=== PATIENT | female | born 1975 | race Caucasian/White ===

== ENCOUNTER 2021-12-27 14:38 | Outpatient (CLI) | payer BC, SELFPAY ==
[2021-12-27 12:52] LABS: Albumin* 4.4 g/dL (3.3-5.0); Chloride* 106 mmol/L (96-114); Potassium* 4.7 mmol/L (3.6-5.1); Sodium* 142 mmol/L (135-149)
[2021-12-27 12:54] LABS: Cholesterol* 177 mg/dL (90-199); Creatinine* 0.6 mg/dL (0.5-1.5); Estimated Glomerular Filt Rate 111 ml/min
[2021-12-27 12:55] LABS: Alanine Aminotransferase* 19 U/L (4-35); Alkaline Phosphatase* 52 U/L (40-150); Aspartate Amino Transferase* 22 U/L (12-35); Bilirubin Total* 0.3 mg/dL (0.1-1.5); Blood Urea Nitrogen* 9 mg/dL (5-24); Calcium* 8.6 mg/dL (8.4-10.6); Carbon Dioxide* 26 mmol/L (20-32); Glucose* 92 mg/dL (60-115); Total Protein* 7.1 g/dL (6.0-8.3); Triglycerides* 76 mg/dL (40-149)
[2021-12-27 12:56] LABS: HDL Cholesterol* 72 mg/dL (>=50); LDL Cholesterol Calculated 90 mg/dL (<100)
[2021-12-27 13:13] LABS: Vitamin D 25 Hydroxy* 60 ng/mL (30-80)
== END 2021-12-27 14:39 | disposition home or self-care (01) ==
PROVIDERS: PCP Family Medicine; Visit Provider Family Medicine
DX: Z01.419 Encounter for gynecological examination (general) (routine) without abnormal findings (principal); E55.9 Vitamin D deficiency, unspecified; D64.9 Anemia, unspecified; R63.6 Underweight
CPT/HCPCS: 80053; 80061; 82306

== ENCOUNTER 2022-02-03 07:05 | Outpatient (CLI) | payer BC, SELFPAY | END 2022-02-03 07:06 | disposition home or self-care (01) | LOC: OP CLINIC 07:06 | PROVIDERS: PCP Family Medicine; Visit Provider Internal Medicine | DX: Z12.11 Encounter for screening for malignant neoplasm of colon (principal) | CPT/HCPCS: 45378; J2250; J2405; J3010 ==

== ENCOUNTER 2022-09-07 12:46 | Outpatient (CLI) | payer BC, SELFPAY ==
--- NOTE | 2022-09-07 13:00 | CRLHL7_ITS ---
For Patients: As a result of the Cures Act, medical imaging exams and procedure reports are released immediately into your electronic medical record. You may view this report before your referring provider. If you have questions, please contact your health care provider. BILATERAL SCREENING MAMMOGRAM WITH COMPUTER-AIDED DETECTION AND TOMOSYNTHESIS TECHNIQUE: CC and MLO views were obtained. These mammographic images have been obtained using full-field digital technique. These mammographic images were interpreted with the benefit of computer-aided detection. Breast Tomosynthesis was used in this interpretation. COMPARISON FILM: 04/14/21, 01/02/20, 06/14/18. FINDINGS: The breasts are extremely dense, which lowers the sensitivity of mammography IMPRESSION: There is no radiographic evidence for malignancy. ASSESSMENT: BI-RADS Category 1: Negative RECOMMENDATION: Routine screening mammogram in 1 year. A lay language report of this examination will be provided to the patient. Luis Eduardo Arreguin M.D. Diagnostic/Nuclear Medicine Radiologist [email or web address] FARIDA/Dictated by: Luis Eduardo Arreguin MD @ 09/08/2022 9:04:00 AM FARIDA/Dictated by: Luis Eduardo Arreguin MD @ 09/08/2022 9:04:00 AM (Electronically Signed)
== END 2022-09-07 12:47 | disposition home or self-care (01) ==
LOC: MAMMO 12:47
PROVIDERS: PCP Family Medicine; Visit Provider Family Medicine
DX: Z12.31 Encounter for screening mammogram for malignant neoplasm of breast (principal); R92.2 Inconclusive mammogram
CPT/HCPCS: 77063; 77067

== ENCOUNTER 2023-01-09 08:39 | Outpatient (CLI) | payer BC, SELFPAY | END 2023-01-09 08:40 | disposition home or self-care (01) | LOC: NFLDREF 01-11 15:02 | PROVIDERS: PCP Family Medicine; Referring Provider Family Medicine; Visit Provider Family Medicine | DX: E55.9 Vitamin D deficiency, unspecified (principal); Z13.220 Encounter for screening for lipoid disorders; D72.819 Decreased white blood cell count, unspecified | CPT/HCPCS: 80053; 80061; 82306 ==

== ENCOUNTER 2023-02-01 09:38 | Outpatient (CLI) | payer BC, SELFPAY ==
[2023-02-01 14:02] LABS: TSH With Reflex to FT4* 0.586 uIU/mL (0.270-4.200)
[2023-02-05 00:27] LABS: Testosterone, Low Level 21 ng/dL (9-55)
== END 2023-02-01 09:39 | disposition home or self-care (01) ==
PROVIDERS: PCP Family Medicine; Visit Provider Obstetrics & Gynecology
DX: N95.1 Menopausal and female climacteric states (principal)
CPT/HCPCS: 84403; 84443

== ENCOUNTER 2023-06-19 08:00 | Outpatient (CLI) | payer BC, SELFPAY ==
--- OUTSIDE RECORDS SUMMARY | 2023-06-25 08:00 | XMS_ITS | Clinical Summary ---
Author Name Unknown Organization [facility] Address [address], [place] [address] Care Team Providers Care Warp Splitter Name Role Phone Yolanda Carpenter MD Primary Care Provider Source Comments You are receiving this document as you are listed as the primary care provider,follow-up provider, or the patient has been referred to you for consultation.This is in compliance with the Medicare and[facility] EHR Incentive Program,which states Providers who transition their patient to another setting of careor provider of care or refers their patient to another provider of care shouldprovide summary care record for each transition of care or referral. [facility] Allergies No known active allergies Medications Medication Sig Dispensed Refills Start Date End Date Status ibuprofen (MOTRIN) 200 MG tablet Take 200-400 mg by mouth as needed for Pain. Active traMADol (ULTRAM) 50 MG tablet Take 50-100 mg by mouth two times daily as needed for Pain. Active FERROUS FUMARATE-VITAMIN C OR Take 1 Tab by mouth two times a day. Active cholecalciferol (VITAMIND3) 400 UNITS tablet Take 400 Units by mouth daily. Active gabapentin (NEURONTIN) 100 MG capsule Take 3-6 Caps by mouth daily at bedtime. 0 12/27/2015 Active DULoxetine (CYMBALTA) 20 MG capsuleIndications:Fib romyalgia Take 1 Cap by mouth daily. 30 Cap 2 12/27/2015 Active Active Problems Problem Noted Date Diagnosed Date Fibromyalgia 12/27/2015 Restless legs 12/27/2015 Iron deficiency anemia due to chronic blood loss 12/27/2015 Immunizations Name Administration Dates Next Due Influenza IIV4 (Quadrivalent) 0.5mL (82555) 08/2015 Social History Tobacco Use Types Packs/Day Years Used Date Smoking Tobacco: Never Smokeless Tobacco: Never Sex and Gender Information Value Date Recorded Sex Assigned at Not on file Gender Identity Not on file Sexual Orientation Not on file Last Filed Vital Signs Vital Sign Reading Time Taken Comments Blood Pressure 143/95 12/27/2015 1:29 PM VETERINARY MEDICAL OFFICER Pulse 80 12/27/2015 1:29 PM VETERINARY MEDICAL OFFICER Temperature - - Respiratory Rate - - Oxygen Saturation - - Inhaled Oxygen Concentration - - Weight 55.6 kg (122 lb 8 oz) 12/27/2015 1:29 PM VETERINARY MEDICAL OFFICER Height - - Body Mass Index - - Plan of Treatment Health Maintenance Due Date Last Done Comments Cervical Cancer Screening Due 1974 Colon Cancer Screening Plan Due 1974 Hep C Screening (Preventive Services) 1974 HIV Screening (Preventive Services) 1990 Adult Preventive Visit 1992 DTaP/Tdap/Td (1 - Tdap) 1993 HepB (1) 1993 Cholesterol 09/25/2019 COVID-19 Vaccine (1 - 2022-2 4 season) 2022 Influenza (Season Ended) 2023 12/27/2015 Zoster/Shingles (1 of 2) 2024 HepA Aged Out No longer eligi ble based on patient's age to complete this topic Hib Aged Out No longer eligi ble based on patient's age to complete this topic IPV (Polio) Aged Out No longer eligi ble based on patient's age to complete this topic MCV4 Aged Out No longer eligi ble based on patient's age to complete this topic Pneumococcal Aged Out No longer eligi ble based on patient's age to complete this topic Care Teams Warp Splitter Relationship Specialty Start Date End Date Yolanda Carpenter MD [address] [facility] [place] [address] PCP - General Family Practice 11/09/15
== END 2023-06-19 08:01 | disposition home or self-care (01) ==
LOC: NFLDREF 06-25 07:59
PROVIDERS: PCP Family Medicine; Referring Provider Family Medicine; Visit Provider Family Medicine
DX: E61.1 Iron deficiency (principal)
CPT/HCPCS: 82728

== ENCOUNTER 2023-09-11 10:03 | Outpatient (CLI) | payer BC, SELFPAY ==
--- OUTSIDE RECORDS SUMMARY | 2023-09-11 10:07 | XMS_ITS | Clinical Summary ---
Author Organization [facility] Address [address] [place] [id number] Care Team Providers Care Trimming Assembler Name Role Phone Yolanda Carpenter MD Primary Care Provider Source Comments You are receiving this document as you are listed as the primary care provider,follow-up provider, or the patient has been referred to you for consultation.This is in compliance with the Medicare andMedicaid EHR Incentive Program,which states Providers who transition [...] Dates Next Due Influenza IIV4 (Quadrivalent) 0.5mL (98850) 08/2015 Social History Tobacco Use Types Packs/Day Years Used Date Smoking Tobacco: Never Smokeless Tobacco: Never Sex and Gender Information Value Date Recorded Sex Assigned at Not on file Gender Identity Not on file Sexual Orientation Not on file Last Filed Vital Signs Vital Sign Reading Time Taken Comments Blood Pressure 143/95 12/27/2015 1:29 PM SOUND CUTTER Pulse 80 12/27/2015 1:29 PM SOUND CUTTER Temperature - - Respiratory Rate - - Oxygen Saturation - - Inhaled Oxygen Concentration - - Weight 55.6 kg (122 lb 8 oz) 12/27/2015 1:29 PM SOUND CUTTER Height - - Body Mass Index - - Plan of Treatment Health Maintenance Due Date Last Done Comments Cervical Cancer Screening Due 1974 Colon Cancer Screening Plan Due 1974 Hep C Screening (Preventive Services) 1974 Mammogram 1974 HIV Screening (Preventive Services) 1990 Adult Preventive Visit 1992 DTaP/Tdap/Td (1 - Tdap) 1993 HepB (1) 1993 Cholesterol 09/25/2019 COVID-19 Vaccine (1 - 2022-2 4 season) 2022 Influenza (#1) 2023 12/27/2015 Zoster/Shingles (1 of 2) 2024 [...] age to complete this topic Care Teams Trimming Assembler Relationship Specialty Start Date End Date Yolanda Carpenter MD [address] [facility] [place] [address] PCP - General Family Practice 11/09/15
--- NOTE | 2023-09-11 10:15 | CRLHL7_ITS ---
For Patients: As a result of the Century Cures Act, medical imaging exams and procedure reports are released immediately into your electronic medical record. You may view this report before your referring provider. If you have questions, please contact your health care provider. Indication: Lumbago with sciatica Technique: Multiplanar, multisequence, MRI of the lumbar spine, obtained without contrast. Comparison: Lumbar spine x-ray 07/24/2023 Findings: Slight lumbar levoconvex curvature, potentially positional, with preserved lumbar lordosis. No significant spondylolisthesis. Vertebral body heights are maintained. No acute osseous abnormality. Unremarkable bone marrow signal. The conus medullaris terminates at L1. Incidental sacral Tarlov cysts. No suspicious findings identified in the paraspinal soft tissues. Bilateral presumed renal cysts. Minor degenerative changes of the included SI joints. T12-L1 through L3-L4: No significant neural foramen or spinal canal stenosis. L4-L5: Minimal disc bulge. No neural foraminal or spinal canal stenosis. L5-S1: Mild diffuse disc bulge, mild facet arthropathy. Left lateral recess stenosis with potential descending left S1 nerve root impingement. No neural foramina or central spinal canal stenosis. Impression: 1. At L5-S1, mild diffuse disc bulge and mild facet arthropathy contribute to left lateral recess stenosis with potential descending left S1 nerve root impingement. 2. No significant neural foraminal or central spinal canal stenosis. No acute osseous abnormality. Dictated by Amy Altman MD @ 09/12/2023 8:39:17 AM (Electronically Signed)
== END 2023-09-11 10:04 | disposition home or self-care (01) ==
LOC: MRI 10:04
PROVIDERS: PCP Family Medicine; Visit Provider Family Medicine
DX: M54.40 Lumbago with sciatica, unspecified side (principal); M51.27 Other intervertebral disc displacement, lumbosacral region
CPT/HCPCS: 72148

== ENCOUNTER 2023-10-25 09:24 | Outpatient (CLI) | payer BC, SELFPAY ==
--- NOTE | 2023-10-25 09:15 | CRLHL7_ITS ---
For Patients: As a result of the Century Cures Act, medical imaging exams and procedure reports are released immediately into your electronic medical record. You may view this report before your referring provider. If you have questions, please contact your health care provider. Indication: PAIN ,NUMBNESS ON TOES, RIGHT Procedure : Informed consent was obtained. The site was marked. Time-out was performed. The skin of the right hip was cleansed with ChloraPrep. A sterile drape was placed. 8 cc of 1 percent lidocaine was administered for superficial anesthesia. Subsequently a 22 gauge spinal needle was introduced into the right hip joint under intermittent fluoroscopic guidance. Injection of 2 cc nonionic Omnipaque 240 contrast confirmed intra-articular location. Subsequently 11 cc of dilute gadolinium were injected. The needle was removed and hemostasis achieved with direct pressure. A dressing was placed. The patient tolerated the procedure well without immediate complication and was immediately sent to MRI for imaging. Total fluoroscopy time 20 seconds. Impression: Successful fluoroscopically guided right hip arthrogram for MRI. Dictated by Lamine Morrow MD @ 10/25/2023 10:33:27 AM (Electronically Signed)
--- OUTSIDE RECORDS SUMMARY | 2023-10-25 09:28 | XMS_ITS | Clinical Summary ---
Author Organization [facility] Address [place], [place] [address] Care Team Providers Care Singeing Torch Operator Name Role Phone Clinic, No Pcp Or Primary Care Provider Unavaila ble Allergies Active Allergy Reactions Criticality Noted Date Comments Prednisone Other - Describe In Comment Field 10/11/2023 Hyperactivity, itching to oral medications Medications Medication Sig Dispensed Refills Start Date End Date Status ferrous fumarate/ascorbic acid (FERROUS FUMARATE-VITAMIN C ORAL) Take 1 Tablet by mouth. Active cholecalciferol (VITAMIN D3) 400 unit tablet Take 400 units by mouth. Active SEMIWEEKLY patch estradiol 0.05 mg/24 hr SEMIWEEKLY transdermal patch apply 1 patch to clean, dry skin twice weekly. leave 1 patch on for 3 days alternating with 1 patch for 4 days each week for 4-wk cycle* 08/31/2023 Active gabapentin (NEURONTIN) 100 mg capsule TAKE ONE CAPSULE BY MOUTH TWICE DAILY in the morning and at noon for back pain. take in addition to the 900 mg at bedtime* 10/04/2023 Active gabapentin (NEURONTIN) 300 mg capsule TAKE THREE CAPSULES BY MOUTH DAILY AT BEDTIME* 08/08/2023 Active ibuprofen (ADVIL; MOTRIN) 800 mg tablet TAKE ONE TABLET BY MOUTH THREE TIMES DAILY with food* Active ondansetron (ZOFRAN) 4 mg tablet TAKE 1 TABLET BY MOUTH 2 TO 3 TIMES A DAY NEEDED FOR NAUSEA/VOMITING* 06/15/2023 Active progesterone micronized (PROMETRIUM) 100 mg capsule TAKE ONE CAPSULE BY MOUTH ONE TIME DAILY AT BEDTIME* 10/02/2023 Active tiZANidine (ZANAFLEX) 2 mg capsule TAKE ONE CAPSULE BY MOUTH ONE TIME DAILY AT BEDTIME NEEDED FOR MUSCLE SPASMS.* 10/04/2023 Active traMADoL (ULTRAM) 50 mg tablet TAKE ONE OR TWO TABLETS BY MOUTH TWICE DAILY NEEDED for pain. max of 4 tablets a day* Active Active Problems No known active problems Encounters Date Type Department Care Team Description 10/11/2023 8:45 AM CDT Ancillary Procedure [facility] [address] [place] [address] 10/11/2023 8:20 AM CDT Office Visit [facility] [address] [place] [address] Kendall Rooney MD Musculoskeletal Problem (Consult mid to low back and bilateral leg symptoms, right>left) 10/11/2023 Travel 08/30/2023 Orders Only [facility] Scanner 1 scan: (1-Ord) [facility], 08/30/2023 from Last 3 Months Social History Tobacco Use Types Packs/Day Years Used Date Smoking Tobacco: Never Smokeless Tobacco: Never Tobacco Cessation:Counseling Given: Yes Social Connections Answer Date Recorded Frequency of Communication with Friends and Fami ly Not on file 10/11/2023 Sex and Gender Information Value Date Recorded Sex Assigned at Not on file Gender Identity Not on file Sexual Orientation Not on file Obstetrics History Last Filed Vital Signs Vital Sign Reading Time Taken Comments Blood Pressure 157/93 10/11/2023 8:40 AM CDT Pulse 75 10/11/2023 8:40 AM CDT Temperature 36.8 ??C (98.3 ??F) 10/11/2023 8:40 AM CD T Respiratory Rate - - Oxygen Saturation 100% 10/11/2023 8:40 AM CDT Inhaled Oxygen Concentration - - Weight 51.6 kg (113 lb 12.8 oz) 10/11/2023 8:40 AM CDT shoes on Height - - Body Mass Index - - Plan of Treatment Health Maintenance Due Date Last Done Comments Tdap 1985 Depression screening for age 12+ 1986 HIV for age 15-65 1989 BMI (ht and wt on same day) for age 18+ 1992 Hepatitis C screening for age 18-79 1992 Tetanus booster 1994 Colonoscopy through age 75 09/25/2019 Lipids for age 45-75 09/25/2019 Mammogram for age 45-75 09/25/2019 COVID-19 vaccine series (4 - 2023-24 season) 2023 01/04/2021, 06/15/2020, 05/25/2020 Influenza for age 9-49 10/21/2023 Pap test for age 21-65 12/30/2024 , 12/30/2021, 04/28/2016, Additional history exists Pneumococcal series for age 6-64 Aged Out No longer eligible based on patient's age to complete this topic Procedures Procedure Name Priority Date/Time Associated Diagnosis Comments XR HIP 1 VIEW W PELVIS RIGHT Routine 10/11/2023 9:41 AM CDT Right hip impingement syndrome Lumbar radiculopathy SCAN-LABORATORY REPORT 08/30/2023 12:00 AM CDT HPV THIN PREP Routine 12/30/2021 1:30 PM MANAGER OF PURCHASING from Last 3 Months or Most Recently Relevant to Health Maintenance Results * XR HIP 1 VIEW W PELVIS RIGHT (10/11/2023 9:41 AM CDT) Anatomical Region Laterality Modality HIPS, HIPR, Pelvis Computed Radi ography 10/11/2023 2:39 PM CDT Impressions 10/11/2023 2:39 PM CDT 1. No acute osseous injuries or abnormalities are noted. Dictated by: Lui Franco MD @ 10/11/2023 14:39:49 (Electronically Signed) Narrative 10/11/2023 2:39 PM CDT For Patients: ??As a result of the Century Cures Act, medical imaging exams and procedure reports are released immediately into your electronic medical record. ??You may view this report before your referring provider. ??If you have questions, please contact your health care provider. INDICATION: Right hip impingement syndrome, Lumbar radiculopathy TECHNIQUE: Pelvis radiograph, Hip radiograph 2 views right COMPARISON: None FINDINGS: Bone: No acute fractures or aggressive bone lesions are identified. Joint: The hip joints are unremarkable. The visualized sacroiliac joints are unremarkable in appearance. The pubic symphysis is normal in appearance. Soft tissue: Unremarkable. The visualized bowel gas pattern of the pelvis is unremarkable in appearance. No radiopaque foreign bodies are seen. Procedure Note Lui Franco MD - 10/11/2023 For Patients: As a result of the Cures Act, medical imagingexams and procedure reports are released immediately into your electronicmedical record. You may view this report before your referring provider.If you have questions, please contact your health care provider. INDICATION: Right hip impingement syndrome, Lumbar radiculopathy TECHNIQUE: Pelvis radiograph, Hip radiograph 2 views right COMPARISON: None FINDINGS: Bone: No acute fractures or aggressive bone lesions are identified. Joint: The hip joints are unremarkable. The visualized sacroiliac jointsare unremarkable in appearance. The pubic symphysis is normal inappearance. Soft tissue: Unremarkable. The visualized bowel gas pattern of the pelvisis unremarkable in appearance. No radiopaque foreign bodies are seen. IMPRESSION: 1. No acute osseous injuries or abnormalities are noted. Dictated by: Lui Franco MD @ 10/11/2023 14:39:49 (Electronically Signed) Kendall Rooney MD GENERAL IMAGING * SCAN-LABORATORY REPORT (08/30/2023 12:00 AM CDT) Scanner OTHER * HPV HIGH RISK (12/30/2021 1:30 PM MANAGER OF PURCHASING) TYPE 16 Negative Negative 01/04/2022 5:14 PM MANAGER OF PURCHASING [facility] TYPE 18 Negative Negative 01/04/2022 5:14 PM MANAGER OF PURCHASING [facility] OTHER HIGH RISK TYPES Negative Negative 01/04/2022 5:14 PM MANAGER OF PURCHASING [facility] Other (Cervical/Vagina l) 12/30/2021 1:30 PM MANAGER OF PURCHASING 01/03/2022 8:36 AM MANAGER OF PURCHASING Narrative [facility] - 01/04/2022 5:14 PM MANAGER OF PURCHASING HPV types 16, 18, 31, 33, 35, 39, 45, 51, 52, 56, 58, 59, 66 and 68 DNA were undetectable or below the pre-set threshold. Methodology: [employer] 4800 HPV Test Yolanda Carpenter MD [employer]CRO[employer] LABORATORY-[facility] [address] [place] [address], from Last 3 Months or Most Recently Relevant to Health Maintenance Care Teams Singeing Torch Operator Relationship Specialty Start Date End Date Clinic, No Pcp Or . PCP - General 10/11/23
--- OUTSIDE RECORDS SUMMARY | 2023-10-25 09:28 | XMS_ITS | Clinical Summary ---
Author Organization [facility] Address [address] [place] [address] Care Team Providers Care Vessel Scrapper Name Role Phone Yolanda Carpenter MD Primary [...] Dates Next Due Influenza IIV4 (Quadrivalent) 0.5mL (13783) 08/2015 Social History Tobacco Use Types Packs/Day Years Used Date Smoking Tobacco: Never Smokeless Tobacco: Never Sex and Gender Information Value Date Recorded Sex Assigned at Not on file Gender Identity Not on file Sexual Orientation Not on file Last Filed Vital Signs Vital Sign Reading Time Taken Comments Blood Pressure 143/95 12/27/2015 1:29 PM CLAY STRUCTURE BUILDER AND SERVICER Pulse 80 12/27/2015 1:29 PM CLAY STRUCTURE BUILDER AND SERVICER Temperature - - Respiratory Rate - - Oxygen Saturation - - Inhaled Oxygen Concentration - - Weight 55.6 kg (122 lb 8 oz) 12/27/2015 1:29 PM CLAY STRUCTURE BUILDER AND SERVICER Height - - Body Mass Index - [...] age to complete this topic Care Teams Vessel Scrapper Relationship Specialty Start Date End Date Yolanda Carpenter MD [address] [facility] [place] [address] PCP - General Family Practice 11/09/15
--- NOTE | 2023-10-25 10:15 | CRLHL7_ITS ---
For Patients: As a result of the Century Cures Act, medical imaging exams and procedure reports are released immediately into your electronic medical record. You may view this report before your referring provider. If you have questions, please contact your health care provider. EXAM: MRI OF THE RIGHT HIP, ARTHROGRAM CLINICAL INDICATION: Right hip impingement syndrome. COMPARISON PLAIN FILMS: 10/20/2015. COMPARISON CROSS-SECTIONAL IMAGING STUDIES: 10/22/2015 MRI. TECHNICAL: Axial, sagittal and coronal PD FS small field of view images of the hip following intra-articular injection of dilute gadolinium. Coronal T1 and PD FS images of the pelvis. FINDINGS: RIGHT HIP: Labrum: No labral tear or paralabral cyst. Articular Cartilage: Articular surfaces appear smooth without focal chondral defect or subchondral marrow changes. Joint Space: No synovitis or loose body. Proximal Femoral Morphology: No significant osseous bump. Femoral head-neck offset is within normal limits. Acetabular Morphology: No focal or global retroversion. No significant overcoverage. LEFT HIP: No effusion or high-grade chondromalacia. No paralabral cyst. OSSEOUS STRUCTURES: No fracture, marrow edema or marrow replacement process. No evidence for avascular necrosis. MUSCULOTENDINOUS STRUCTURES AND BURSAE: Gluteus Minimus and Medius: No tendon tear or tendinopathy. No muscle atrophy or edema. Bursae: No trochanteric or iliopsoas bursitis. Common Hamstrings: No tendon tear or tendinopathy. Adductors and Flexors: Tendons and myotendinous junctions are intact. No muscle atrophy or edema. SOFT TISSUES: No subcutaneous edema, hematoma or fluid collection. OTHER JOINTS: Sacroiliac joints are maintained. Pubic symphysis is maintained. INTRAPELVIC CONTENTS: No mass, fluid collection or adenopathy. No inguinal hernia. NEUROVASCULAR STRUCTURES: No abnormality involving the visualized proximal femoral or proximal sciatic nerves. No aneurysmal dilation of the visualized distal aorta or iliac arterial circulation. IMPRESSION: 1. Unremarkable right hip MR arthrogram. Dictated by Kendall Morris MD @ 10/25/2023 2:04:51 PM (Electronically Signed)
== END 2023-10-25 09:25 | disposition home or self-care (01) ==
LOC: RAD 09:24
PROVIDERS: PCP Family Medicine; Visit Provider Family Medicine
DX: M54.16 Radiculopathy, lumbar region (principal); M51.36 Other intervertebral disc degeneration, lumbar region
CPT/HCPCS: 27093; 73525; 73722; 77002; A9575; Q9966

== ENCOUNTER 2023-12-04 08:34 | Outpatient (CLI) | payer BC, SELFPAY ==
--- OUTSIDE RECORDS SUMMARY | 2023-12-04 08:38 | XMS_ITS | Clinical Summary ---
Author Organization [facility] Address [address] [place] [address] Care Team Providers Care Manager Budget Name Role Phone Yolanda Carpenter MD Primary [...] Dates Next Due Influenza IIV4 (Quadrivalent) 0.5mL (64153) 08/2015 Social History Tobacco Use Types Packs/Day Years Used Date Smoking Tobacco: Never Smokeless Tobacco: Never Sex and Gender Information Value Date Recorded Sex Assigned at Not on file Gender Identity Not on file Sexual Orientation Not on file Last Filed Vital Signs Vital Sign Reading Time Taken Comments Blood Pressure 143/95 12/27/2015 1:29 PM RAMP MANAGER Pulse 80 12/27/2015 1:29 PM RAMP MANAGER Temperature - - Respiratory Rate - - Oxygen Saturation - - Inhaled Oxygen Concentration - - Weight 55.6 kg (122 lb 8 oz) 12/27/2015 1:29 PM RAMP MANAGER Height - - Body Mass Index - - Plan of Treatment Health Maintenance Due Date Last Done Comments Cervical Cancer Screening Due 1974 Colon Cancer Screening Plan Due 1974 Hep C Screening (Preventive Services) 1974 Mammogram 1974 HIV Screening (Preventive Services) 1990 Adult Preventive Visit 1992 DTaP/Tdap/Td (1 - Tdap) 1993 HepB (1) 1993 Cholesterol 09/25/2019 COVID-19 Vaccine (1 - 2023-2 5 season) 2023 Influenza (#1) 2023 12/27/2015 Zoster/Shingles (1 of 2) 2024 HepA Aged Out No longer eligi ble based on patient's age to complete this topic Hib Aged Out No longer eligi ble based on patient's age to complete this topic IPV (Polio) Aged Out No longer eligi ble based on patient's age to complete this topic RSV Aged Out No longer eligi ble based on patient's age to complete this topic MCV4 Aged Out No longer eligi ble based on patient's age to complete this topic Pneumococcal Aged Out No longer eligi ble based on patient's age to complete this topic Care Teams Manager Budget Relationship Specialty Start Date End Date Yolanda Carpenter MD [address] [place] [address] PCP - General Family Practice 11/09/15
--- OUTSIDE RECORDS SUMMARY | 2023-12-04 08:38 | XMS_ITS | Clinical Summary ---
Author Organization [email or web address] Address [place], [place] [address] Care Team Providers Care Meteorological Observer Name Role Phone Clinic, No Pcp Or [...] Encounters Date Type Department Care Team Description 10/26/2023 Telephone [facility] [address] [place] [address] [address] Kendall Roonye MD Results (MRI) 10/25/2023 Orders Only [facility] Scanner 1 scan: (1-Ord) [facility] [place] [facility] RT, 10/25/2023 10/11/2023 8:45 AM CDT Ancillary Procedure [facility] [address] [facility] [address] 10/11/2023 8:20 AM CDT Office Visit [facility] [address] [place] [address] [address] Kendall Rooney MD Musculoskeletal Problem (Consult mid to low back and bilateral leg symptoms, right>left) 10/11/2023 Travel 09/11/2023 Orders Only [facility] Scanner 1 scan: (1-Ord) MARCELLUS, LUMBAR SPINE WO CON, 09/11/2023 from Last 3 Months Social History Tobacco [...] Mass Index - - Plan of Treatment Upcoming Encounters Date Type Department Care Team (Late st Contact Info) Description 12/04/2023 9:00 AM CDT Office Visit [facility] at [facility] [address] [place] [address] Kendall Rooney MD [address] [place] [address] Arrived Health Maintenance Due Date Last Done Comments Tdap 1985 Depression screening for age 12+ 1986 HIV for age 15-65 1989 BMI (ht and wt on same day) for age 18+ 1992 Hepatitis C screening for age 18-79 1992 Tetanus booster 1994 Colonoscopy through age 75 09/25/2019 Lipids for age 45-75 09/25/2019 Mammogram for age 45-75 09/25/2019 COVID-19 vaccine series (2023- season) 2023 01/04/2021, 06/15/2020, 05/25/2020 Influenza for age 9-49 10/21/2023 Pap test for age 21-65 12/30/2024 2, 12/30/2021, 04/28/2016, Additional history exists Pneumococcal series for age 6-64 Aged Out No longer eligible based on patient's age to complete this topic Procedures Procedure Name Priority Date/Time Associated Diagnosis Comments AMB EPIDURAL STEROID INJECTION Routine 11/09/2023 8:01 AM CDT Lumbar radiculopathy DDD (degenerative disc disease), lumbar Lumbar facet arthropathy Right hip impingement syndrome SCAN-DIAGNOSTIC REPORT 12:00 AM CDT XR HIP 1 VIEW W PELVIS RIGHT Routine 10/11/2023 9:41 AM CDT Right hip impingement syndrome Lumbar radiculopathy SCAN-MRI INTERPRETATION 09/11/2023 12:00 AM CDT HPV HIGH RISK Routine 12/30/2021 1:30 PM RATTLESNAKE FARMER from Last 3 Months or Most Recently Relevant to Health Maintenance Results * SCAN-DIAGNOSTIC REPORT (10/25/2023 12:00 AM CDT) Scanner OTHER * XR HIP 1 VIEW W PELVIS RIGHT (10/11/2023 9:41 AM CDT) Anatomical Region Laterality Modality HIPS, HIPR, Pelvis Computed Radi ography 10/11/2023 2:39 PM CDT Impressions 10/11/2023 2:39 PM CDT 1. No acute osseous injuries or abnormalities are noted. Dictated by: Lui Franco MD @ 10/11/2023 14:39:49 (Electronically Signed) Narrative 10/11/2023 2:39 PM CDT For Patients: ??As a result of the Cures Act, medical imaging exams and procedure [...] Signed) Kendall Rooney MD GENERAL IMAGING * SCAN-MRI INTERPRETATION (09/11/2023 12:00 AM CDT) Anatomical Region Laterality Modality Other Scanner OTHER * HPV HIGH RISK (12/30/2021 1:30 PM RATTLESNAKE FARMER) TYPE 16 Negative Negative 01/04/2022 5:14 PM RATTLESNAKE FARMER [facility] TYPE 18 Negative Negative 01/04/2022 5:14 PM RATTLESNAKE FARMER [facility] OTHER HIGH RISK TYPES Negative Negative 01/04/2022 5:14 PM RATTLESNAKE FARMER [facility] Other (Cervical/Vagina l) 12/30/2021 1:30 PM RATTLESNAKE FARMER 01/03/2022 8:36 AM RATTLESNAKE FARMER Narrative [facility] - 01/04/2022 5:14 PM RATTLESNAKE FARMER HPV types 16, 18, 31, 33, 35, 39, 45, 51, 52, 56, 58, 59, 66 and 68 DNA were undetectable or below the pre-set threshold. Methodology: Can Sharon 4800 HPV Test Yolanda Carpenter MD MICROBIOLOGY [facility] [address] [place] [address], from Last 3 Months or Most Recently Relevant to Health Maintenance Care Teams Meteorological Observer Relationship Specialty Start Date End Date Clinic, No Pcp Or . PCP - General 10/11/23
== END 2023-12-04 08:35 | disposition home or self-care (01) ==
PROVIDERS: PCP Family Medicine; Visit Provider Family Medicine
DX: M54.16 Radiculopathy, lumbar region (principal); M51.369 Other intervertebral disc degeneration, lumbar region without mention of lumbar back pain or lower extremity pain
CPT/HCPCS: 62323; J0702; Q9966

== ENCOUNTER 2024-01-15 07:53 | Outpatient (CLI) | payer BC, SELFPAY ==
--- OUTSIDE RECORDS SUMMARY | 2024-01-17 09:53 | XMS_ITS | Clinical Summary ---
Author Organization [facility] Address [place], [place] [address] Care Team Providers Care Barrel Lathe Operator Name Role Phone Yolanda Carpenter MD Primary Care Provider + Allergies Active Allergy Reactions Criticality Noted Date [...] max of 4 tablets a day* Active celecoxib (CELEBREX) 200 mg capsuleIndications:L umbar radiculopathy Take 1 Capsule (200 mg) by mouth two times daily with meals. 60 Capsule 2 01/16/2024 Active Active Problems No known active problems Encounters Date Type Department Care Team Description 01/16/2024 3:40 PM DANCE CRITIC Office Visit [facility] [address] [place] [address] Kendlal Rooney MD Musculoskeletal Problem (Follow up back and right leg pain had an epidural steroid injection on 12/04/23) 01/16/2024 Travel 12/31/2023 Orders Only [facility] [address] [place] [address] Kendall Rooney MD 1 scan: (1-Ord) [place], HIP RT W CON, 10/25/2023 12/25/2023 Telephone [facility] [address] [place] [address] Kendall Rooney MD Follow Up 12/04/2023 9:00 AM CDT Office Visit [facility] at [facility] [address] [place] [address] Kendall Rooney MD Procedure (L4-5 ILESI) 10/26/2023 Telephone [facility] [address] [place] [address] Kendall Rooney MD Results (MRI) 10/25/2023 Orders Only [facility] Scanner 1 scan: (1-Ord) [facility] [place] ARTHROGRAM HIP RT, 10/25/2023 from Last 3 Months Social History Tobacco Use Types Packs/Day Years Used Date Smoking Tobacco: Never Smokeless Tobacco: Never Tobacco Cessation:Counseling Given: Yes Sex and Gender Information Value Date Recorded Sex Assigned at Not on file Gender Identity Not on file Sexual Orientation Not on file Obstetrics History Last Filed Vital Signs Vital Sign Reading Time Taken Comments Blood Pressure 158/98 01/16/2024 3:57 PM DANCE CRITIC Pulse 74 01/16/2024 3:44 PM DANCE CRITIC Temperature 36.7 C (98.1 F) 01/16/2024 3:44 PM DANCE CRITIC Respiratory Rate - - Oxygen Saturation 99% 01/16/2024 3:44 PM DANCE CRITIC Inhaled Oxygen Concentration - - Weight 51.6 [...] for age 45-75 09/25/2019 COVID-19 vaccine series ( season) 2023 01/04/2021, 06/15/2020, 05/25/2020 Influenza for age 9-49 10/21/2023 Pap test for age 21-65 12/30/2024 , 12/30/2021, 04/28/2016, Additional history exists Pneumococcal series for age 6-64 Aged Out No longer eligible based on patient's age to complete this topic Procedures Procedure Name Priority Date/Time Associated Diagnosis Comments AMB EPIDURAL STEROID INJECTION Routine 12/04/2023 12:00 AM CDT Lumbar radiculopathy DDD (degenerative disc disease), lumbar Lumbar facet arthropathy Right hip impingement syndrome MR ARTHROGRAM HIP RIGHT Routine 10/25/2023 12:00 AM CDT Right hip impingement syndrome Lumbar radiculopathy DDD (degenerative disc disease), lumbar SCAN-DIAGNOSTIC REPORT 10/25/2023 12:00 AM CDT HPV HIGH RISK Routine 12/30/2021 1:30 PM DANCE CRITIC from Last 3 Months or Most Recently Relevant to Health Maintenance Results * AMB EPIDURAL STEROID INJECTION (12/04/2023 12:00 AM CDT) Kendall Rooney MD NEUROLOGY ORD * MR ARTHROGRAM HIP RIGHT (10/25/2023 12:00 AM CDT) Anatomical Region Laterality Modality HIPR Magnetic Resonan ce Kendall Rooney MD MR * SCAN-DIAGNOSTIC REPORT (10/25/2023 12:00 AM CDT) Scanner OTHER * HPV HIGH RISK (12/30/2021 1:30 PM DANCE CRITIC) TYPE 16 Negative Negative 01/04/2022 5:14 PM DANCE CRITIC [facility] TYPE 18 Negative Negative 01/04/2022 5:14 PM DANCE CRITIC [facility] OTHER HIGH RISK TYPES Negative Negative 01/04/2022 5:14 PM DANCE CRITIC [facility] Other (Cervical/Vagina l) 12/30/2021 1:30 PM DANCE CRITIC 01/03/2022 8:36 AM DANCE CRITIC Narrative [facility] - 01/04/2022 5:14 PM DANCE CRITIC HPV types 16, 18, 31, 33, 35, 39, 45, 51, 52, 56, 58, 59, 66 and 68 DNA were undetectable or below the pre-set threshold. Methodology: Can [place] 4800 HPV Test Yolanda Carpenter MD MICROBIOLOGY [facility] [address] [place] [address], from Last 3 Months or Most Recently Relevant to Health Maintenance Care Teams Barrel Lathe Operator Relationship Specialty Start Date End Date Yolanda Carpenter MD [address] [place] [address] PCP - General Family Practice 01/16/24
--- OUTSIDE RECORDS SUMMARY | 2024-01-17 09:53 | XMS_ITS | Clinical Summary ---
Author Organization [facility] Address [address] [place] [address] Care Team Providers Care Senior Mainframe Developer Name Role Phone Yolanda Carpenter MD Primary [...] Dates Next Due Influenza IIV4 (Quadrivalent) 0.5mL (83617) 08/2015 Social History Tobacco Use Types Packs/Day Years Used Date Smoking Tobacco: Never Smokeless Tobacco: Never Sex and Gender Information Value Date Recorded Sex Assigned at Not on file Gender Identity Not on file Sexual Orientation Not on file Last Filed Vital Signs Vital Sign Reading Time Taken Comments Blood Pressure 143/95 12/27/2015 1:29 PM SWITCHMAN Pulse 80 12/27/2015 1:29 PM SWITCHMAN Temperature - - Respiratory Rate - - Oxygen Saturation - - Inhaled Oxygen Concentration - - Weight 55.6 kg (122 lb 8 oz) 12/27/2015 1:29 PM SWITCHMAN Height - - Body Mass Index - [...] age to complete this topic Care Teams Senior Mainframe Developer Relationship Specialty Start Date End Date Yolanda Carpenter MD [address] [address] PCP - General Family Practice 11/09/15
== END 2024-01-15 07:54 | disposition home or self-care (01) ==
LOC: NFLDREF 01-17 09:50
PROVIDERS: PCP Family Medicine; Referring Provider Family Medicine; Visit Provider Family Medicine
DX: E78.5 Hyperlipidemia, unspecified (principal); R53.83 Other fatigue; G25.81 Restless legs syndrome; E55.9 Vitamin D deficiency, unspecified; D70.9 Neutropenia, unspecified; R03.0 Elevated blood-pressure reading, without diagnosis of hypertension; Z13.9 Encounter for screening, unspecified; Z86.2 Personal history of diseases of the blood and blood-forming organs and certain disorders involving the immune mechanism
CPT/HCPCS: 80053; 80061; 82728

== ENCOUNTER 2024-02-26 09:52 | Outpatient (CLI) | payer BC, SELFPAY | END 2024-02-26 09:53 | disposition home or self-care (01) | LOC: NFLDREF 02-27 02:20 | PROVIDERS: PCP Family Medicine; Referring Provider Family Medicine; Visit Provider Obstetrics & Gynecology | DX: R35.0 Frequency of micturition (principal) | CPT/HCPCS: 87086 ==

== ENCOUNTER 2024-02-28 10:37 | Outpatient (CLI) | payer BC, SELFPAY ==
--- NOTE | 2024-02-28 10:45 | CRLHL7_ITS ---
For Patients: As a result of the Century Cures Act, medical imaging exams and procedure reports are released immediately into your electronic medical record. You may view this report before your referring provider. If you have questions, please contact your health care provider. INDICATION: Abnormal uterine and vaginal bleeding TECHNIQUE: Ultrasound pelvis transabdominal and transvaginal for better assessment or to better visualize the endometrium. Real-time sonographic images with spectral and color Doppler imaging of the ovaries were obtained. COMPARISON: None. FINDINGS: Uterus: 7.1 x 4 x 4.4 cm cm. Normal echotexture of the myometrium. No masses. Endometrium: Transvaginal imaging was performed to better evaluate the endometrium. Endometrial thickness measures 4 mm. No sign of endometrial mass or fluid. Right ovary 2.7 x 1.6 x 1.8 cm. Left ovary 3.2 x 2.6 x 2.6 cm. Normal arterial and venous blood flow is demonstrated in both ovaries. Within the left ovary, there is a complex structure with internal debris and hypoechoic component without vascularity measuring 1.8 x 2.2 x 2.4 cm. Cul-de-sac: No significant free fluid. IMPRESSION: 1. Unremarkable uterus and endometrium. 2. The bilateral ovaries are normal in size without evidence of torsion. A complex cystic structure in the left ovary is indeterminate although may represent a hemorrhagic cyst. Consider follow-up ultrasound in 6-8 weeks to ensure resolution. Dictated by Cynthia Lewis MD @ 02/29/2024 1:19:33 PM (Electronically Signed)
== END 2024-02-28 10:38 | disposition home or self-care (01) ==
LOC: US 10:37
PROVIDERS: PCP Family Medicine; Visit Provider Obstetrics & Gynecology
DX: N93.9 Abnormal uterine and vaginal bleeding, unspecified (principal); N83.202 Unspecified ovarian cyst, left side
CPT/HCPCS: 76830; 76856

== ENCOUNTER 2024-04-08 08:43 | Outpatient (CLI) | payer BC, SELFPAY | END 2024-04-08 08:44 | disposition home or self-care (01) | LOC: INJ CL 08:44 | PROVIDERS: PCP Family Medicine; Visit Provider Family Medicine | DX: M54.16 Radiculopathy, lumbar region (principal); M51.369 Other intervertebral disc degeneration, lumbar region without mention of lumbar back pain or lower extremity pain | CPT/HCPCS: 64483; J1100; Q9966 ==

== ENCOUNTER 2024-04-15 14:51 | Outpatient (CLI) | payer BC, SELFPAY ==
--- NOTE | 2024-04-15 15:00 | CRLHL7_ITS ---
For Patients: As a result of the Century Cures Act, medical imaging exams and procedure reports are released immediately into your electronic medical record. You may view this report before your referring provider. If you have questions, please contact your health care provider. BILATERAL SCREENING MAMMOGRAM WITH COMPUTER-AIDED DETECTION AND TOMOSYNTHESIS TECHNIQUE: CC and MLO views were obtained. These mammographic images have been obtained using full-field digital technique. These mammographic images were interpreted with the benefit of computer-aided detection. Breast Tomosynthesis was used in this interpretation. COMPARISON FILM: 09/07/22, 04/14/21, 01/02/20. FINDINGS: The breasts are extremely dense, which lowers the sensitivity of mammography. IMPRESSION: There is no radiographic evidence for malignancy. ASSESSMENT: BI-RADS Category 1: Negative RECOMMENDATION: Routine screening mammogram in 1 year. A lay language report of this examination will be provided to the patient. Lamine Morrow M.D. Diagnostic Radiologist [email or web address] SP/Dictated by: Lamine Morrow MD @ 04/16/2024 9:38:00 AM (Electronically Signed)
== END 2024-04-15 14:52 | disposition home or self-care (01) ==
LOC: MAMMO 14:52
PROVIDERS: PCP Family Medicine; Visit Provider Family Medicine
DX: Z12.31 Encounter for screening mammogram for malignant neoplasm of breast (principal); R92.343 Mammographic extreme density, bilateral breasts
CPT/HCPCS: 77063; 77067

== ENCOUNTER 2024-09-01 11:04 | Outpatient (CLI) | payer BC, SELFPAY ==
--- NOTE | 2024-09-01 11:00 | CRLHL7_ITS ---
For Patients: As a result of the Century Cures Act, medical imaging exams and procedure reports are released immediately into your electronic medical record. You may view this report before your referring provider. If you have questions, please contact your health care provider. INDICATION: Lumbar radiculopathy TECHNIQUE: 4-view lumbar spine, including lateral flexion and extension. COMPARISON: MRI 07/01/2024 FINDINGS: No fracture. No spondylolisthesis. No abnormal motion with flexion or extension. Disc spaces maintained. Facet joints unremarkable IMPRESSION: No instability with flexion or extension. Dictated by Lamine Morrow MD @ 09/01/2024 12:12:25 PM (Electronically Signed)
== END 2024-09-01 11:05 | disposition home or self-care (01) ==
LOC: RAD 11:04
PROVIDERS: PCP Family Medicine; Visit Provider Pain Medicine Interventional Pain Medicine
DX: M54.16 Radiculopathy, lumbar region (principal)
CPT/HCPCS: 72110

== ENCOUNTER 2024-11-23 08:30 | Emergency (ER) | payer BC, SELFPAY ==
--- OUTSIDE RECORDS SUMMARY | 2024-08-19 05:00 | XMS_ITS ---
Author Organization [facility] Address [address] [place] [address] [address] [place] [address] Care Team Providers Care Commissary Production Supervisor Name Role Phone Yolanda Carpenter Primary Care Provider Unav ailable Ald[place] CreekJulian Unavailable [phone] Kali PERSONAL VEHICLE ADVISOR, Rosa Unavailable Unavailable Flaco Spann Unavailable [phone] REASON FOR VISIT Right Leg Pain Piriformis Syndrome Encounters Encounter Location Date Provider Diagnosis BV [address] [facility] [address] [facility] [address] [place] [address] 08/19/2024 Flaco Spann Plan Of Treatment No Information Progress Notes * Shelly ECHEVARRIA EDOB: [birth year] (49 yo F)Acc No.[id number]:08/19/2024 Progress Notes Patient: Shelly MANZANARES Provider: Graciela Spann NP :1975 A ge:48 Y S ex:Female Date:08/19/2024 Phone: Address:[facility] [address], [place], [place]-[address] Pcp:Yolanda Carpenter Subjective: * Chief Complaints: * 1 . Right Leg Pain Piriformis Syndrome. * Medical History: Objective: * Vitals: Assessment: Plan: * Treatment: * Billing Information: * Visit Code: * Procedure Codes: * Electronic signature of Johnny Spann CNP on 11/23/2024 at 08:32 AM CDT Sign off status: Pending * Provider: Graciela Spann NP Date: 0 08/19/2024 Generated for Printi ng/Famichaelg/eTransmitting on: 08:32 AM CDT
--- OUTSIDE RECORDS SUMMARY | 2024-10-21 06:45 | XMS_ITS ---
Author Organization [facility] Address [address] [place] [address] [address] [place] [address] Care Team Providers Care Agate Setter Name Role Phone joyYolanda holman Primary Care Provider Unav ailable Julian Michael Unavailable [phone] Kali TALENT ACQUISITION RELATIONSHIP MANAGER, Rosa Unavailable Unavailable Dedrick Mcginnis [phone] REASON FOR VISIT Low Back Pain, Right Hip Pain, Right Lower Extremity Pain/Numbness, Right Foot Pain/Tingling Encounters Encounter Location Date Provider Diagnosis [address] [facility] [address] [facility] [address] [place] [address] 10/21/2024 Dedrick Mcginnis Assessments Encounter Date Diagnosis (ICD Code) Assessment Notes Treatment Notes Treatment Clinical Notes Section Notes 10/21/2024 Other Hollis Rice, am serving as a scribe to document services personally performed by Dedrick Mcginnis PA-C, based upon my observations and the provider's statements to me. All documentation has been reviewed by the aforementioned MARINE ENGINEERING CONSULTANT as well as Julian Michael MD, prior to being entered into the official medical record. IJulian MD attest that the above named individual is acting in scribe capacity, has observed Dedrick Mcginnis's performance of the services and has documented them in accordance with his direction. The documentation recorded by the scribe accurately reflects the service Dedrick Mcginnis PA-C, and Julian Michael MD, personally performed and the decisions made by them. Plan Of Treatment Treatment Notes Assessment Notes Other Hollis Rice , am serving as a scribe to document services personally performed by Dedrick Mcginnis PA-C, based upon my observations and the provider's statements to me. All documentation has been reviewed by the aforementioned MARINE ENGINEERING CONSULTANT as well as Julian Michael MD, prior to being entered into the official medical record. I, Julian Michael MD attest that the above named individual is acting in scribe capacity, has observed Dedrick Mcginnis's performance of the services and has documented them in accordance with his direction. The documentation recorded by the scribe accurately reflects the service Dedrick Mcginnis PA-C, and Julian Michael MD, personally performed and the decisions made by them. Progress Notes * Shelly ECHEVARRIA EDOB: [birth year] (49 yo F)Acc No.[id number]:10/21/2024 Progress Notes Patient: Shelly MANZANARES Provider: Deisi Mcginnis PA-C :1975 A ge:49 Y S ex:Female Date:10/21/2024 Phone: Address:[facility] [address], [facility], [phone] Pcp:Yolanda Carpenter Subjective: * Chief Complaints: * 1 . Low Back Pain. 2. Right Hip Pain. 3. Right Lower Extremity Pain/Numbness. 4. Right Foot Pain/Tingling. * HPI: C [place] visit: Shelly is a 48-year-old female with a pertinent past medical history significant for headaches who returns for evaluation regarding low back pain, right hip pain, right lower extremity pain and numbness, and right foot pain, numbness, and tingling. She notes that her pain is most bothersome at night and while driving. She has had difficulty with past steroid injections to include hormone distruption and lingering increased pain up to 5 days post procedure. Interval History: Regarding medication she was rotated from Meloxicam 15MD to Diclofenac 75MG BID and she notes. Additionally, she was advised to trial magnesium glycinate. LUISITO: Shelly's pain remains persistent and bothersome in the interim.Regarding medications, she was started on Meloxicam 15MG QD and notes minimal relief. She does report symptoms of causalgia to include muscle weakness in her right lower extremity resulting in falls decreased ROM, and muscle spasm. She has dry needling later today. Current Pain Medications: Gabapentin 400MG prn and 900MG qHS, Tizanidine 2MG qHS, Tramadol 50MG BID prn, Diclofenac 75MG BID Current Benzodiazepines: None Current MME: ~40.00 Previous Pain Medications: Methocarbamol (no relief), M eloxicam 15MG QD (minimal relief) Previous Related Consults: -Rosa Bass DNP of [facility] Previous Related Surgery: None Previous Injections: Patient has negative reactions to steroids 04/08/2024 - Repeat right L5-S1 TFE (no relief) 12/04/2023 - Right L5-S1 TFE (no relief) Previous Therapy: - Ongoing physical therapy at [facility] 1x/week (temporary relief) - Massage - TENS unit (somewhat helpful) Last Prescribed Narcan : N/A Work Status/Mental Health/Opioid Inconsistencies: N/A Patient's history was reviewed and updated as appropriate, including past medical history, past surgical history, social history, family history, allergies, and current medications. returns to clinic today for a follow up evaluation regarding her chronic ___ pain. We discussed her current symptoms and medications. I have reviewed the [place] PERSONALIZATION SPECIALIST database and did not find any inconsistencies. I will continue with a treatment plan consisting of at this time. This treatment plan was reviewed with , and she was agreeable. I will continue to monitor her progress and she will follow up in one month or sooner if needed. Plan: LP: 1. Toradol injection completed in clinic today 2. Reviewed lumbar flex/ext XR 3. Consider lumbar SCS trial Medtronic Inceptive vs DRG (no failed back surgery) 4. Rotate from Meloxicam 15MD to Diclofenac 75MG BID 5. Consider rotating from Gabapentin to Lyrica- discuss with PCP 6. Trial Magnesium Glycinate 7. Consider Right piriformis injection 8. Follow up in one month Discharge instructions reviewed verbally. Discussed the risks/benefits of prescribed medication. The patient is aware that medication may be discontinued at any time due to poor compliance with visits, and recommended treatment and/or if patient doesn't adhere to the signed pain contract. The patient was instructed to return to the office as scheduled and call with any questions, problems or concerns. * Medical History: Objective: * Vitals: * Examination: M usculoskeletal: Constitutional: n ormal body habitus, well groomed, in no acute distress. Chest R espirations nonlabored. Musculoskeletal: n ormal gait and station, sits comfortably. Skin: N o rashes, scars, or lesions on visible skin. Neurological n ormal coordination upper extremities, normal coordination lower extremities, alert and oriented x3, normal mood and affect. ? Assessment: Plan: * Treatment: * Billing Information: * Visit Code: * Procedure Codes: * Electronic signature of Antonio Mcginnis PA-C on 11/23/2024 at 08:32 AM CDT Sign off status: Pending * Provider: Deisi Mcginnis PA-C Date: 0 10/21/2024 Generated for David lizama/Desmond/eTransmitting on: 1 08:32 AM CDT History and Physical Notes * Examination Category Sub-Category Detail Notes Category Not es Musculoskeletal Constitutional: normal body habi tus, well groomed, in no acute distress Musculoskeletal: normal gait and stat ion, sits comfortably Skin: No rashes, scars, or lesions on visible skin Neurological normal coordination upper extremities, normal coordination lower extremities, alert and oriented x3, normal mood and affect Chest Respirations nonlabo red
[2024-11-23] VITALS (11 sets, daily range): BP systolic 149–171; BP diastolic 87–122; PULSE 77–84; RESP 16–18; TEMP 36.7; O2SAT 98–100; BMI 19.3
--- OUTSIDE RECORDS SUMMARY | 2024-11-23 08:32 | XMS_ITS | Clinical Summary ---
Author Organization [facility] Address [address] [place] [address] Care Team Providers Care Repair Mechanic Name Role Phone Yolanda Carpenter MD Primary Care Provider + Kendall Rooney MD Unavailable [phone] Allergies Active Allergy Reactions Criticality Noted Date Comments Prednisone Other - Describe In Comment Field 10/11/2023 Hyperactivity, itching to oral medications Medications ferrous fumarate/ascorbic acid (FERROUS FUMARATE-VITAMIN C ORAL) Take 1 Tablet by mouth. Active cholecalciferol (VITAMIN D3) 400 unit tablet Take 400 units by mouth. Active SEMIWEEKLY patch estradiol 0.05 mg/24 hr SEMIWEEKLY transdermal patch apply 1 patch to clean, dry skin twice weekly. leave 1 patch on for 3 days alternating with 1 patch for 4 days each week for 4-wk cycle* 4 Active gabapentin (NEURONTIN) 100 mg capsule TAKE ONE CAPSULE BY MOUTH TWICE DAILY in the morning and at noon for back pain. take in addition to the 900 mg at bedtime* 4 Active gabapentin (NEURONTIN) 300 mg capsule TAKE THREE CAPSULES BY MOUTH DAILY AT BEDTIME* 4 Active ibuprofen (ADVIL; MOTRIN) 800 mg tablet TAKE ONE TABLET BY MOUTH THREE TIMES DAILY with food* Active ondansetron (ZOFRAN) 4 mg tablet TAKE 1 TABLET BY MOUTH 2 TO 3 TIMES A DAY NEEDED FOR NAUSEA/VOMITING * 4 Active progesterone micronized (PROMETRIUM) 100 mg capsule TAKE ONE CAPSULE BY MOUTH ONE TIME DAILY AT BEDTIME* 4 Active tiZANidine (ZANAFLEX) 2 mg capsule TAKE ONE CAPSULE BY MOUTH ONE TIME DAILY AT BEDTIME NEEDED FOR MUSCLE SPASMS.* 4 Active traMADoL (ULTRAM) 50 mg tablet TAKE ONE OR TWO TABLETS BY MOUTH TWICE DAILY NEEDED for pain. max of 4 tablets a day* Active celecoxib (CELEBREX) 200 mg capsuleIndication s:Lumbar radiculopathy Take 1 Capsule (200 mg) by mouth two times daily with meals. 60 Capsule 2 4 Active Active Problems No known active problems Social History Tobacco Use Types Packs/Day Years Used Date Smoking Tobacco: Never Smokeless Tobacco: Never Tobacco Cessation:Counseling Given: Yes Comments Unknown Sex and Gender Information Value Date Recorded Sex Assigned at Not on file Legal Sex Female 7:25 PM CUT PLUG PACKER Gender Identity Not on file Sexual Orientation Not on file Obstetrics History Last Filed Vital Signs Vital Sign Reading Time Taken Comments Blood Pressure 152/88 06/09/2024 10:08 AM CDT anxiety Pulse 86 06/09/2024 10:08 AM CDT Temperature 37 C (98.6 F) 06/09/2024 10:08 AM CDT Respiratory Rate - - Oxygen Saturation 100% 06/09/2024 10: 08 AM CDT Inhaled Oxygen Concentration - - Weight 51.6 kg (113 lb 12.8 oz) 10/11/2023 8:40 AM CDT shoes on Height - - Body Mass Index - - Plan of Treatment Health Maintenance Due Date Last Done Comments Tetanus booster 1985 Depression screening for age 12+ 1986 HIV for age 15-65 1989 BMI (ht and wt on same day) for age 18+ 1992 Hepatitis C screening for ag e 18-79 1992 Hepatitis B series for 19+ ( 1 of 3 - 19+ 3-dose series) 1993 Colonoscopy through age 75 09/25/2019 Lipids for age 45-75 09/25/2019 Mammogram for age 45-75 09/25/2019 Pneumococcal series for age 50+ (1 of 1 - PCV) 2024 Zoster (shingles) series for age 50+ (1 of 2) 2024 Influenza Vaccine (#1) 2024 Pap test for age 21-65 12/30/2024 2, 12/30/2021, 04/28/2016, Additional history exists RSV vaccine for adults or (1 - 1-dose 75+ series) 2049 COVID-19 vaccine series Completed 01/23/20 24, 01/04/2021, 06/15/2020, Additional history exists Procedures Procedure Name Priority Date/Time Associated Diagnosis Comments HPV HIGH RISK Routine 12/30/2021 1:30 PM CUT PLUG PACKER from Last 3 Months or Most Recently Relevant to Health Maintenance Results * HPV HIGH RISK (12/30/2021 1:30 PM CUT PLUG PACKER) TYPE 16 Negative Negative 01/04/2022 5:14 PM CUT PLUG PACKER [facility] TYPE 18 Negative Negative 01/04/2022 5:14 PM CUT PLUG PACKER [facility] OTHER HIGH RISK TYPES Negative Negative 01/04/2022 5:14 PM CUT PLUG PACKER [facility] Other (Cervical/Vagina l) 12/30/2021 1:30 PM CUT PLUG PACKER 01/03/2022 8:36 AM CUT PLUG PACKER Narrative [facility] - 01/04/2022 5:14 PM CUT PLUG PACKER HPV types 16, 18, 31, 33, 35, 39, 45, 51, 52, 56, 58, 59, 66 and 68 DNA were undetectable or below the pre-set threshold. Methodology: Can Sharon 4800 HPV Test Yolanda Carpenter MD MICROBIOLOGY Final Re sult [facility] [address] [place] [address], from Last 3 Months or Most Recently Relevant to Health Maintenance Insurance [facility] Care Teams Repair Mechanic Relationship Specialty Start Date End Date Yolanda Carpenter MD [address] [place] [address] PCP - General Family Practice 01/16/24 Kendall Rooney MD [facility] [place] [address] Consulting Physician Sports Medicine - Family Medicine 06/09/24
--- OUTSIDE RECORDS SUMMARY | 2024-11-23 08:32 | XMS_ITS | Clinical Summary ---
Author Organization [facility] Address [address] [place] [address] Care Team Providers Care Electrical Prospecting Supervisor Name Role Phone Yolanda Carpenter MD Primary Care Provider [phone] Allergies Active Allergy Reactions Criticality Noted Date Comments Prednisone Other 10/11/2023 Hyperactivity, itching to oral medications Medications traMADoL (ULTRAM) 50 mg oral tablet TAKE ONE OR TWO TABLETS BY MOUTH TWICE DAILY NEEDED for pain. max of 4 tablets a day* Active tiZANidine 2 mg oral Cap TAKE ONE CAPSULE BY MOUTH AT BEDTIME NEEDED FOR MUSCLE SPASM* Active progesterone micronized (PROMETRIUM) 100 mg oral capsule TAKE ONE CAPSULE BY MOUTH ONE TIME DAILY AT BEDTIME* Active ondansetron (ZOFRAN) 4 mg oral tablet TAKE 1 TABLET BY MOUTH 2 TO 3 TIMES A DAY NEEDED FOR NAUSEA/VOMITI NG* Active gabapentin (NEURONTIN) 300 mg oral capsule TAKE THREE CAPSULES BY MOUTH AT BEDTIME* Active gabapentin (NEURONTIN) 100 mg oral capsule take 2 capsules by mouth in the morning and 2 capsules at noon for back pain.* Active estradioL (VIVELLE-DOT) 0.05 mg/24 hr TD SEMIweekly patch place 1 patch on dry, clean, hairless skin twice weekly.* Active cholecalciferol (VITAMIN D3) 400 unit (10 mcg) oral Tab tablet Take 1 tablet (10 mcg) by mouth. Active Active Problems Problem Noted Date Diagnosed Date Fibromyalgia 12/27/2015 Iron deficiency anemia due to chronic blood loss 12/27/2015 Restless legs 12/27/2015 Immunizations Immunization Administration Dates Next Due Hep A Adult 09/02/2014,06/25/2002 Influenza split virus (Fluzo ne Quadrivalent PF) 12/27/2015 Pfizer 12+ Yrs Monovalent CO VID Vaccine (purple cap) 01/04/2021,06/15/2020,05/25/2020 Pfizer Comirnaty 12+ Yrs COV ID Vaccine Seasonal 01/23/2024 Td adult absorbed PF (2 Lf) 03/13/2005, 3 Tdap 09/02/2014 Typhoid capsular polysaccharide 09/02/2014 Social History Tobacco Use Types Packs/Day Years Used Date Smoking Tobacco: Never Smokeless Tobacco: Never Tobacco Cessation:Counseling Given: Not Answered Alcohol Use Standard Drinks/Week Comments Never 0 (1 standard drink = 0.6 oz pur e alcohol) Comments Unknown Sex and Gender Information Value Date Recorded Sex Assigned at Not on file Legal Sex Female 12:59 PM CDT Gender Identity Not on file Sexual Orientation Not on file Plan of Treatment Health Maintenance Due Date Last Done Comments Colonoscopy 1974 Hepatitis C Screening 1974 Lipid Screening 1974 Mammogram Screening 1974 Pap Smear 1974 Anxiety Screening (AJAY-2) 09/25/1975 Depression Assessment (PHQ-2) 09/25/1975 Adult Tetanus Booster 09/02/2024 09/02/2014 , 03/13/2005, 06/25/2002 Pneumococcal 50+ Years (1 of 1 - PCV) 2024 Yearly Review of HCD 2024 Zoster Vaccine (1 of 2) 2024 Influenza Vaccine (#1) 2024 12/27/2015 RSV Vaccines (1 - 1-dose 75+ series) 2049 COVID-19 Vaccine Completed 01/23/2024, , 06/15/2020, Additional history exists Meningococcal B Vaccine Aged Out No l onger eligible based on patient's age to complete this topic Insurance [facility] Care Teams Electrical Prospecting Supervisor Relationship Specialty Start Date End Date Yolanda Carpenter MD [facility] [address] [place], [place] [id number] PCP - General Family Medicine 06/19/24
--- OUTSIDE RECORDS SUMMARY | 2024-11-23 08:32 | XMS_ITS | Patient Health Record ---
Author Organization [facility] Address [address] [place] [address] [address] [place] [address] Care Team Providers Care Manager Water Name Role Phone Yolanda Carpenter Primary Care Provider Julian Patel Unavailable [phone] Rosa Bass NP Unavailable Unavailable Sen Napoles Unavailable [phone] Mcginnis Dedrick Unavailable [phone] Maria Ines, Flaco Unavailable [phone] Allergies No Known Allergies Reason For Referral No Information Medications Medication SIG (Take, Route, Fr equency, Duration) Notes Start Date End Date Status Diclofenac Sodium 75 MG 1 tablet with fo od or milk Orally Twice a day; Duration: 30 days 09/23/2024 Active Meloxicam 15 MG 1 tablet Orally Once a day; Duration: 30 days Active Gabapentin 100 MG take 2 capsules by m outh in the morning and 2 capsules at noon for back pain.* Oral; Duration: 90 Days Active traMADol HCl 50 MG Oral; Duration: 60 Days Active tiZANidine HCl 2 MG TAKE ONE CAPSULE BY MOUTH AT BEDTIME NEEDED FOR MUSCLE SPASM* Oral; Duration: 90 Days Active Estradiol 0.05 MG/24HR place 1 patch on dry, clean, hairless skin twice weekly.* Transdermal; Duration: 84 Days Active Gabapentin 300 MG TAKE THREE CAPSULES BY MOUTH AT BEDTIME* Oral; Duration: 90 Days Active Ondansetron HCl 4 MG TAKE 1 TABLET BY MO UTH 2 TO 3 TIMES A DAY NEEDED FOR NAUSEA/VOMITING* Oral; Duration: 23 Days Active Social History Tobacco Use: Social History Observation Description Date Details (start date - stop date) Never Smoker NA - NA Tobacco Control (Standard) Question Answer Notes Tobacco use: Nonsmoker AUDIT-C (Standard) Question Answer Notes Did you have a drink containing alcohol in the p ast year? No Points 0 Interpretation Negative Problems Problem Type SNOMED Code ICD Code Onset Dates Problem Status W/U Status Risk Notes Problem Chronic pain (67944712) Other chronic pain (G89.29) Active confirmed Problem Lumbar radiculopathy (927418897) Radiculopath y, lumbar region (M54.16) Active confirmed Vital Signs Blood pressure diastolic 92 mm Hg 09/23/2024 Height 65 in 09/23/2024 Blood pressure systolic 152 mm Hg 09/23/2024 Weight 118 lbs 09/23/2024 BMI 19.63 kg/m2 09/23/2024 Encounters Encounter Location Date Provider Diagnosis [facility] [address] [place] [address] 07/22/2024 Julian Michael [facility] [address] [place] [address] 08/27/2024 Julian Michael Other chronic pain G89.29 [address] [facility] [address] [place] [address] 08/26/2024 Sen Napoles Other chronic pain G89.29 and Radiculopathy, lumbar region M54.16 [address] [facility] [address] [place] [address] 09/23/2024 Dedrick Mcginnis Other chronic pain G89.29 and Radiculopathy, lumbar region M54.16 Assessments Encounter Date Diagnosis (ICD Code) Assessment Notes Treatment Notes Treatment Clinical Notes Section Notes 09/23/2024 Other chronic pain (ICD-10 - G89.29) Shelly returns to clinic today for a follow-up evaluation regarding her chronic low back pain, right hip pain, right lower extremity pain and numbness, and right foot pain, numbness, and tingling. We discussed her current symptoms and medications. Since she is planning to travel for work this upcoming week, I will administer a Toradol injection (30mg) to reduce inflammation and prevent an acute pain flare. Additionally, I reviewed her lumbar flexion/extension XR completed 09/01/2024 with her in clinic today, of which demonstrated no lumbar instability. In the future, I will consider a lumbar SCS trial [employer] to help treat her pain and numbness. Regarding medications, I have reviewed the [place] [employer] database and did not find any inconsistencies. Therefore, I will rotate her from Meloxicam 15MG QD to Diclofenac 75MG BID as tolerated. I also advised her to discuss a possible rotation from Gabapentin to Lyrica with her PCP for additional relief for her nerve pain. This treatment plan was reviewed with Shelly, and she was agreeable. I will continue to monitor her progress and she will follow up in one month or sooner if needed. Plan: 1. Toradol injection completed in clinic today [...] the risks/benefits of prescribed medication. The patient was instructed to return to the office as scheduled and call with any questions, problems or concerns. 09/01/2024 Lumbar Flexion/Extension XR ([facility]) IMPRESSION: No instability with flexion or extension. 09/23/2024 Radiculopath y, lumbar region (ICD-10 - M54.16) 08/27/2024 Other chronic pain (ICD-10 - G89.29) 08/26/2024 Other chronic pain (ICD-10 - G89.29) Shelly presents to the clinic for an evaluation regarding her chronic low back pain, right hip pain, right lower extremity pain and numbness, and right foot pain, numbness, and tingling. I have reviewed her symptoms and current medications. I checked the [place] [employer] database and I did not find any inconsistencies. I reviewed her lumbar MRI dated 03/13/2024 from [facility], as well as a lower extremity EMG, and discussed the findings with her. I believe her symptoms are largely related to an L5-S1 radiculopathy. I will order a lumbar flexion/extension XR to [facility] to better determine the source of her painful symptoms and rule out spinal instability. If the xray does show instability, we will refer her to a spine surgeon for a consult. She has consented to signing a LEONILA to [facility] in order to obtain her imaging, clinic notes, and injection notes. She will continue physical therapy at [facility] once a week and I advised her to trial dry needling. I will consider a right piriformis injection based on her painful symptoms and examination performed in clinic. Regarding medications, I will start her on Meloxicam 15MG QD in an attempt to alleviate her painful symptoms. I also discussed tapering off of gabapentin and her current muscle relaxer and transitioning to baclofen. We will consider this at a future visit. This treatment plan was reviewed with the patient, and she was agreeable. She will return in one month for further evaluation or sooner if needed. I will continue to monitor her progress, adjusting her treatment plan as necessary. Plan: 1. Reviewed lumbar MRI dated 07/01/2024 and bilateral LE EMG dated 03/04/2024 2. LEONILA to [facility] 3. Continue PT at [facility] - advised to trial dry needling 4. Order lumbar flex/ext XR to [facility] 5. Consider right piriformis injection 6. Start Meloxicam 15MG QD 7. Follow up in four weeks for xray review Discharge instructions reviewed verbally. Discussed the risks/benefits of prescribed medication. The patient was instructed to return to the office as scheduled and call with any questions, problems or concerns. Lumbar MRI ([facility])Exam Date: 07/01/2024IMPRESSION: 1. No acute osseous or ligamentous abnormality. No significant changes compared to the prior study. 2. At L5-S1, grade 1 anterolisthesis, disc bulge and facet arthrosis. Mild subarticular recess narrowing without kristofer nerve impingement. No neural foraminal narrowing. 3. No pathologic enhancement. 4. Incidental sacral Tarlov cysts. Bilateral LE EMG ([facility])Exam Date: 03/04/2024ONCLUSION: This is an abnormal study. There is electrodiagnostic evidence of a subacute-chronic, active right L5 radiculopathy with incomplete distal reinnervation. There is no electrophysiologic evidence of focal neuropathy (peroneal, tibial, sciatic or femoral) or generalized polyneuropathy in the right leg. 08/26/2024 Radiculopath y, lumbar region (ICD-10 - M54.16) 08/26/2024 Other I, Nery hi, am serving as a scribe to document services personally performed by Mauri Galindo PA-C, based upon my observations and the provider's statements to me. All documentation has been reviewed by the aforementioned NISHI as well as Sen Napoles MD, prior to being entered into the official medical record. ISen MD attest that the above named individual is acting in scribe capacity, has observed Mauri Galindo's performance of the services and has documented them in accordance with her direction. The documentation recorded by the scribe accurately reflects the service Mauri Galindo PA-C, personally performed and the decisions made by her. 09/23/2024 Other I, Shilpi uD , am serving as a scribe to document services personally performed by Dedrick Mcginnis PA-C, based upon my observations and the provider's statements to me. All documentation has been reviewed by the aforementioned NISHI as well as Julian Michael MD, prior to being entered into the official medical record. Julian Rice MD attest that the above named individual is acting in scribe capacity, has observed Dedrick Mcginnis's performance of the services and has documented them in accordance with her direction. The documentation recorded by the scribe accurately reflects the service Dedrick Mcginnis PA-C and Julian Michael MD personally performedand the decisions made by them. 10/21/2024 Other I, Hollis Spencer, am serving as a scribe to document services personally performed by Dedrick Mcginnis PA-C, based upon my observations and the provider's statements to me. All documentation has been reviewed by the aforementioned FARM ASSISTANT as well as Julian Michael MD, prior to being entered into the official medical record. Julian Rice MD attest that the above named individual is acting in scribe capacity, has observed Dedrick Mcginnis's performance of the services and has documented them in accordance with his direction. The documentation recorded by the scribe accurately reflects the service Dedrick Mcginnis PA-C, and Julian Michael MD, personally performed and the decisions made by them. Plan Of Treatment Pending Test Test Name Order Date X ray : Lumbar Flexion/Extension 025 Insurance Providers Payer Name Payer Address Payer Phone Subscriber Number Group Number Insured Name Patient Relationship to Insured Coverage Start Date Coverage End Date [facility] [address] [address] [place] [phone] [id number] Shelly Echevarria Self - patient is the insured Medications Administered Medication Instructions Date of Administration Dosage Notes Toradol 09/23/2024 1 mL Medical (General) History Medical History History ICD Code Headaches Anemia Anxiety
--- OUTSIDE RECORDS SUMMARY | 2024-11-23 08:32 | XMS_ITS | Clinical Summary ---
Author Organization [facility] Address [address] [place] [address] Care Team Providers Care Ornamental Ironworker Helper Name Role Phone Yolanda Carpenter MD Primary [...] [facility] Allergies No known active allergies Medications ibuprofen (MOTRIN) 200 MG tablet Take 200-400 [...] 0 12/27/2015 Active DULoxetine (CYMBALTA) 20 MG capsuleIndicatio ns:Fibromyalgia Take 1 Cap by mouth daily. 30 Cap 2 12/27/2015 Active Active Problems Problem Noted Date Diagnosed Date Fibromyalgia 12/27/2015 Restless legs 12/27/2015 Iron deficiency anemia due to chronic blood loss 12/27/2015 Immunizations Immunization Administration Dates Next Due Influenza IIV4 (Quadrivalent) 0.5mL (18058) 08/2015 Social History Tobacco Use Types Packs/Day Years Used Date Smoking Tobacco: Never Smokeless Tobacco: Never Comments Unknown Sex and Gender Information Value Date Recorded Sex Assigned at Not on file Legal Sex Female 5:01 AM CDT Gender Identity Not on file Sexual Orientation Not on file Last Filed Vital Signs Vital Sign Reading Time Taken Comments Blood Pressure 143/95 12/27/2015 1:29 PM PRODUCE WRAPPER Pulse 80 12/27/2015 1:29 PM PRODUCE WRAPPER Temperature - - Respiratory Rate - - Oxygen Saturation - - Inhaled Oxygen Concentration - - Weight 55.6 kg (122 lb 8 oz) 12/27/2015 1:29 PM PRODUCE WRAPPER Height - - Body Mass Index - - Plan of Treatment Health Maintenance Due Date Last Done Comments Cervical Cancer Screening Due 1974 Colon Cancer Screening Plan Due 1974 Hep C Screening (Preventive Services) 1974 Mammogram 1974 HIV Screening (Preventive Services) 1990 Adult Preventive Visit 1992 DTaP/Tdap/Td Vaccine (1 - Tdap) 1993 HepB Vaccine (1) 1993 Cholesterol 09/25/2019 Pneumococcal Vaccine 50+ Yrs (1 of 1 - PCV) 2024 Zoster/Shingles Vaccine (1 of 2) 2024 COVID-19 Vaccine (1 - 2023-2 5 season) 2024 Influenza Vaccine (#1) 2024 12/27/2015 RSV Vaccine (1 - 1-dose 75+ series) 2049 HepA Vaccine Aged Out No longer eligi ble based on patient's age to complete this topic Hib Vaccine Aged Out No longer eligi ble based on patient's age to complete this topic IPV (Polio) Vaccine Aged Out No longe r eligible based on patient's age to complete this topic MCV4 Vaccine Aged Out No longer eligi ble based on patient's age to complete this topic Meningococcal B Vaccine Aged Out No l onger eligible based on patient's age to complete this topic Insurance [facility] Care Teams Ornamental Ironworker Helper Relationship Specialty Start Date End Date Yolanda Carpenter MD [address] [id number] PCP - General Family Practice 11/09/15
[2024-11-23] MEDS: EPINEPHrine 0.3 MG PEN IM (08:43)
[2024-11-23] MEDS: FAMOTIDINE 20 MG TABLET PO (08:45)
--- NOTE | 2024-11-23 08:49 | ED_ITS ---
HPI - Allergic Reaction General Chief complaint: Allergic Reaction Stated complaint: allergic reaction Time Seen by Provider: 11/23/24 08:30 Source: patient Mode of arrival: ambulatory Limitations: no limitations History of Present Illness HPI narrative: Patient is a 49-year-old female presenting to the emergency department for concern of allergic reaction. States in the past year had allergic reaction to bee stings. Was stung this morning on the right little finger prior to arrival. She states she is noticing swelling to that right finger and feels like her tongue is swelling up and her throat is scratchy. Denies chest pain, shortness of breath, abdominal pain, nausea, weakness, numbness, headache, vision changes. No other concerns. States this feels similar to previous allergic reaction. Related Data Home Medications ?Medication ?Instructions ?Recorded ?Confirmed iron,carbonyl 65 mg-vitamin C 125 1 tab PO BID 3 07/29/24 mg tablet,delayed release (Vitron-C) vit d PO 07/04/22 07/29/24 Previous Rx's ?Medication ?Instructions ?Recorded gabapentin 300 mg capsule 900 mg (3 x 300 mg) PO QHS # 270 01/23/24 caps tizanidine 2 mg capsule (Zanaflex) 2 mg PO QHS PRN mus aylin spasticity 01/23/24 #90 caps estradiol 0.05 mg/24 hr semiweekly 1 patch topical 2XW #24 ea 02/26/24 transdermal patch progesterone micronized 100 mg 100 mg PO QHS #90 caps 02/26/24 capsule (Prometrium) gabapentin 100 mg capsule 200 mg (2 x 100 mg) PO BID # 360 03/05/24 caps ondansetron HCl 4 mg tablet 4 mg PO BID-TID PRN nausea and 08/06/24 vomiting #30 tabs methocarbamol 500 mg tablet 500 mg PO TID PRN muscle s pasm 10/16/24 #180 tabs tramadol 50 mg tablet See Rx Instructions PO BID P RN 11/06/24 pain #120 tabs epinephrine 0.3 mg/0.3 mL 0.3 mg (0.3 mL) IM Q5-15M KS N #2 ea 11/23/24 injection, auto-injector prednisone 20 mg tablet 40 mg (2 x 20 mg) PO DAILY # 8 tabs 11/23/24 Allergies Allergy/AdvReac Type Severity Reaction Status Date / Time duloxetine Allergy Unknown Verified 04/08/24 08:58 CI Pigment Blue 63 Allergy Unknown Uncoded 04/08/24 08:58 Review of Systems Status of ROS Reports: 10 or more systems reviewed and unremarkable except as noted in History and below [facility] Medical History Elevated blood pressure reading (~11/2022) ?R03.0 - Elevated blood-pressure reading, without diagnosis of hypertension (ICD-10) Lumbar back pain ?M54.50 - Low back pain, unspecified (ICD-10) Cervical disc disease ?M50.90 - Cervical disc disorder, unspecified, unspecified cervical region (ICD-10) Vitamin D deficiency ?E55.9 - Vitamin D deficiency, unspecified (ICD-10) Thoracic outlet syndrome (10/01/12) ?G54.0 - Brachial plexus disorders (ICD-10) Restless legs syndrome (10/01/12) ?G25.81 - Restless legs syndrome (ICD-10) Leukopenia (~2016) ?D72.819 - Decreased white blood cell count, unspecified (ICD-10) Iron deficiency anemia ?D50.9 - Iron deficiency anemia, unspecified (ICD-10) Surgical History History of eye surgery ?Z98.890 - Other specified postprocedural states (ICD-10) History of benign breast biopsy ?Z98.890 - Other specified postprocedural states (ICD-10) Family History Father Hx of CABG, Onset Age: 76 High blood pressure Mother High blood pressure Social History Narrative: , 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[employer], no kids, lives in , nonsmoker quit in 2008, 5 years 5 cigarettes a day social drinker 1-2 wine / week Exercise 4 times per week running, strength training What is your current living situation?: I presently have a place to live Problems where you live: no known problems In the past 12 months, utilities in danger of being shut off: no In past 12 months, lack of transportation kept you from medical appts, meetings, work, or getting things needed for daily living: no In the past 12 mos, have been you worried that your food would run out before you had money to buy more?: never true In the past 12 mos, the food you bought just didn't last and you didn't have money to buy more?: never true Smoking Status: Never smoker How often does anyone, including family, friends and others, physically hurt you : never How often does anyone, including family, friends and others, insult or talk down to you: never How often does anyone, including family, friends and others, threaten you with harm: never How often does anyone, including family, friends and others, scream or curse at you: never Exam Narrative: Exam Narrative: Const: Well-nourished, Well-developed, in mild distress Eyes: PERRL, no conjunctival injection, and symmetrical lids HENT: Atraumatic external nose and ears. Moist mucous membranes. Neck: Symmetric, trachea midline, No thyromegaly. CVS: RRR, No murmurs or gallops. Peripheral pulses 2+ and equal in all extremities RESP: Unlabored respiratory effort. Clear to auscultation bilaterally. GI: Nontender/Nondistended, No rebound or guarding. MSK:Extremities w/o deformity, Normal Active ROM Skin: Warm, Dry. Mild swelling noted to right index finger with a small spot where it appears she was stung by a bee Neuro: Normal Muscle tone, No focal neurological deficits. Psych: Awake, Alert, & Oriented x3. Appropriate mood and affect. Const: Vital Signs, click to edit/add: Vital Signs - 24 hr 11/23/24 08:33 11/23/24 08:51 11/23/24 09:00 Temperature 98.1 F Pulse Rate 77 77 Pulse Rate [Pulse Oximeter] 82 Respiratory Rate 18 18 Blood Pressure Blood Pressure [Le ft Upper Arm] 171/122 H Pulse Oximetry 98 100 99 Oxygen Delivery Me thod Room Air 11/23/24 09:15 11/23/24 09:17 11/23/24 09:23 Temperature Pulse Rate 84 79 Pulse Rate [Pulse Oximeter] Respiratory Rate 16 Blood Pressure 149/87 H Blood Pressure [Le ft Upper Arm] Pulse Oximetry 100 99 Oxygen Delivery Me thod 11/23/24 09:30 11/23/24 09:45 11/23/24 10:00 Temperature Pulse Rate 80 80 80 Pulse Rate [Pulse Oximeter] Respiratory Rate Blood Pressure Blood Pressure [Le ft Upper Arm] Pulse Oximetry 100 100 100 Oxygen Delivery Me thod 11/23/24 10:15 Temperature Pulse Rate 82 Pulse Rate [Pulse Oximeter] Respiratory Rate 16 Blood Pressure Blood Pressure [Le ft Upper Arm] Pulse Oximetry 100 Oxygen Delivery Me thod Course Vital Signs Vital signs: Initial Vital Signs Temperature 98.1 F 11/23/24 08:33 Temperature Source Temporal Artery Scan 11/23/24 08:33 Pulse Rate 82 11/23/24 08:33 Respiratory Rate 18 11/23/24 08:33 Blood Pressure 171/122 H 11/23/24 08:33 Blood Pressure Mean 138 H 11/23/24 08:33 Pulse Oximetry 98 11/23/24 08:33 Oxygen Delivery Method Room Air 11/23/24 08:33 Vital Signs Temperature 98.1 F 11/23/24 08:33 Pulse Rate 82 11/23/24 08:33 Respiratory Rate 18 11/23/24 08:33 Blood Pressure 171/122 H 11/23/24 08:33 Pulse Oximetry 98 11/23/24 08:33 Oxygen Delivery Method Room Air 11/23/24 08:33 Temperature 98.1 F 11/23/24 08:33 Pulse Rate 82 11/23/24 10:15 Respiratory Rate 16 11/23/24 10:15 Blood Pressure 149/87 H 11/23/24 09:17 Pulse Oximetry 100 11/23/24 10:15 Oxygen Delivery Method Room Air 11/23/24 08:33 Medications Administered Medications: Discontinued Medications Generic Name Dose Route Start Last Admin Trade Name Freq PRN Reason Stop Dose Admin Epinephrine HCl 0.3 mg 11/23/24 08:40 11/23/24 08:43 Epinephrine 0.3 Mg Pen IM 11/23/24 08:41 0.3 mg ONCE ONE Administration Famotidine 20 mg 11/23/24 08:40 11/23/24 08:45 Famotidine 20 Mg Tablet PO 11/23/24 08:41 20 mg ONCE ONE Administration Prednisone 40 mg 11/23/24 08:40 11/23/24 08:45 Prednisone 20 Mg Tablet PO 11/23/24 08:41 40 mg ONCE ONE Administration MDM - Allergic Reaction MDM Narrative Medical decision making narrative: Patient is a 49-year-old female presenting to emergency department for signs allergic reaction. There is no obvious urticaria but she is having sensation of swelling in her throat so will treat her for anaphylaxis. Epinephrine, Pepcid, steroids given. She is already taking Benadryl. Vital signs are stable. Will monitor for 2 hours after the epinephrine. After 2 hours of monitoring she is feeling well. I do believe she is safe for discharge. She is agreeable to this plan. Steroids EpiPen provided. Discharge Plan Discharge Clinical Impression: Allergic reaction Patient Disposition: Home, Self-Care Condition: Stable Instructions: General Allergic Reaction (ED) Additional Instructions: Continue take Benadryl and Pepcid at home as needed. Can take Pepcid once daily. Take the steroids daily for the next 4 days starting tomorrow. pipe fitter supervisor the EpiPen also. Prescriptions: New prednisone 20 mg tablet 40 mg PO DAILY Qty: 8 0RF epinephrine 0.3 mg/0.3 mL auto-injector 0.3 mg IM Q5-15M PRNQty: 2 0RF Rx Instructions: do not exceed 3 doses per episode No Action vit d PO Vitron-C 65 mg iron- 125 mg tablet,delayed release (DR/EC) 1 tab PO BID gabapentin 300 mg capsule 900 mg PO QHS Qty: 270 3RF tizanidine [Zanaflex] 2 mg capsule 2 mg PO QHS PRN (Reason: muscle spasticity) Qty: 90 3RF estradiol 0.05 mg/24 hr patch semiweekly 1 patch topical 2XW Qty: 24 4RF progesterone micronized [Prometrium] 100 mg capsule 100 mg PO QHS Qty: 90 3RF gabapentin 100 mg capsule 200 mg PO BID Qty: 360 3RF Rx Instructions: 2 in am, 2 at noon for back pain, in addition to the 900mg at bed time ondansetron HCl 4 mg tablet 4 mg PO BID-TID PRN (Reason: nausea and vomiting) Qty: 30 0RF methocarbamol 500 mg tablet 500 mg PO TID PRN (Reason: muscle spasm) Qty: 180 1RF Rx Instructions: take 1-2 tablets as needed TID for muscle spasms tramadol 50 mg tablet See Rx Instructions PO BID MDD 4 tablets per day PRN (Reason: pain) Qty: 120 0RF Rx Instructions: 1-2 tablets PO twice a day PRN; Follow Up/Referrals: Yolanda Carpenter MD [Primary Care Provider, Family Practice] Stand Alone Forms: Listen Edition Info Instructions
== END 2024-11-23 10:53 | disposition home or self-care (01) ==
PROVIDERS: Emergency Provider Student in an Organized Health Care Education/Training Program; PCP Family Medicine
DX: T63.441A Toxic effect of venom of bees, accidental (unintentional), initial encounter (principal)
CPT/HCPCS: 94761; 96372; 99283; 99284; A9270; J0169; J7512

== ENCOUNTER 2024-11-27 14:01 | Outpatient (CLI) | payer BC, SELFPAY | END 2024-11-27 14:02 | disposition home or self-care (01) | PROVIDERS: PCP Family Medicine; Visit Provider Family Medicine | DX: E55.9 Vitamin D deficiency, unspecified (principal); E61.1 Iron deficiency; G25.81 Restless legs syndrome; M54.40 Lumbago with sciatica, unspecified side; M79.10 Myalgia, unspecified site; R53.81 Other malaise; R53.83 Other fatigue | CPT/HCPCS: 80053; 82306; 82607; 82728; 83540; 83550; 84443; 86038; 86140; 86200; 86431; 86618; 86812; 87468; 87469; 87484; 87798 ==

== ENCOUNTER 2025-01-21 07:39 | Outpatient (CLI) | payer BC, SELFPAY | END 2025-01-21 07:40 | disposition home or self-care (01) | LOC: NFLDREF 01-23 14:39 | PROVIDERS: PCP Family Medicine; Referring Provider Family Medicine; Visit Provider Family Medicine | DX: E55.9 Vitamin D deficiency, unspecified (principal); E61.1 Iron deficiency; E78.5 Hyperlipidemia, unspecified; G25.81 Restless legs syndrome; R03.0 Elevated blood-pressure reading, without diagnosis of hypertension; R79.89 Other specified abnormal findings of blood chemistry | CPT/HCPCS: 80053; 80061; 82306; 82607; 82728 ==